=== PATIENT | female | born 1970 | race Caucasian/White ===

== ENCOUNTER 2021-06-19 16:00 | Emergency (ER) | payer OTHER ==
[~2021-06-19] VITALS: Ht 167.6 cm; Wt 76.4 kg
[2021-06-19 16:35] VITALS: BP 124/54
--- NOTE | 2021-06-19 18:03 | RAD ---
EXAM: AP, lateral and lumbosacral spot views of the lumbar spine DATE: 06/19/2021 5:38 PM INDICATION: Reason: RIGHT SIDED FLANK, LUMBAR BACK PAIN / Spl. Instructions: / History: COMPARISON: No Prior FINDINGS: Vertebral body heights are preserved. Disc heights are preserved. Mild facet degenerative changes of L3-4 and below. No spondylolisthesis. IMPRESSION: No acute fracture or subluxation. Electronically signed by: Zohaib Monique MD (06/19/2021 6:01 PM) RAHEEL
--- NOTE | 2021-06-19 18:25 | PHYS DOC ---
Past History Past Surgical History: Hysterectomy, Tonsillectomy Additional Past Surgical Histo: breast reduction, gastric sleeve, tubal ligation (WARREN GAUTHIER APRN) Alcohol Use: Rarely (WARREN GAUTHIER APRN) General Adult EDM: Chief Complaint: BACK PAIN OR INJURY HPI: HPI: Patient is a 50-year-old female who presents to the emergency department for right flank pain that started 1 week ago. Is worse with movement. She rates the pain 6 out of 10. No treatment prior to arrival. Patient was issued a primary care appointment on for this but could not wait. Patient de nies any fevers, nausea, vomiting, dysuria, hematuria, urinary frequency or urgency, injury or heavy lifting. (WARREN GAUTHIER APRN) Review of Systems: Review of Systems: 14 body systems of the review of systems have been reviewed. See HPI for pertinent positive and negative responses, otherwise all other systems are negative, nonpertinent or noncontributory (WARREN GAUTHIER APRN) Allergies: Allergies: Allergies Coded Allergies Type Severity Reaction Last Updated Verified Penicillins Allergy Unknown 06/19/21 Yes (WARREN GAUTHIER APRN) Physical Exam: PE: Constitutional: Well developed, well nourished, no acute distress, non-toxic appearance. [] HENT: Normocephalic, atraumatic Eyes: PERRLA, EOMI, conjunctiva normal, no discharge. [] Neck: Normal range of motion, no stridor Cardiovascular:Heart rate regular rhythm, no murmur [] Lungs & Thorax: Bilateral breath sounds clear to auscultation [] Abdomen: Bowel sounds normal, soft, no tenderness, no masses, no pulsatile masses. [] Skin: Warm, dry, no erythema, no rash. [] Back: No tenderness, right-sided CVA tenderness Extremities: No tenderness, no cyanosis, no clubbing, ROM intact, no edema. [] Neurologic: Alert and oriented X 3, normal motor function, normal sensory function, no focal deficits noted. [] Psychologic: Affect normal, judgement normal, mood normal. [] (WARREN GAUTHIER APRN) Current Patient Data: Labs: Laboratory Tests Test 06/19/21 16:42 Urine Collection Type Unknown Urine Color Yellow Urine Clarity Clear Urine pH 7.0 Urine Specific [place] 1.020 Urine Protein Neg Urine Glucose (UA) Neg mg/dL Urine Ketones (Stick) Neg mg/dL Urine Blood Neg Urine Nitrite Neg Urine Bilirubin Neg Urine Urobilinogen Dipstick 0.2 mg/dL Urine Leukocyte Esterase Neg Urine RBC 0 /HPF Urine WBC 0 /HPF Urine Squamous Epithelial Cells Few /LPF Urine Bacteria Few /HPF Vital Signs: Vital Signs Date Time Temp Pulse Resp B/P (MAP) Pulse Ox O2 Delivery O2 Flow Rate FiO2 06/19/21 16:35 97.8 70 18 124/54 (77) 100 Room Air (WARREN GAUTHIER APRN) EKG: EKG: [] (WARREN GAUTHIER APRN) Radiology/Procedures: Radiology/Procedures: []REASON: RIGHT SIDED FLANK, LUMBAR BACK PAIN PROCEDURE: LUMBAR SPINE 2-3V EXAM: AP, lateral and lumbosacral spot views of the lumbar spine DATE: 06/19/2021 5:38 PM INDICATION: Reason: RIGHT SIDED FLANK, LUMBAR BACK PAIN / Spl. Instructions: / History: COMPARISON: No Prior FINDINGS: Vertebral body heights are preserved. Disc heights are preserved. Mild facet degenerative changes of L3-4 and below. No spondylolisthesis. IMPRESSION: No acute fracture or subluxation. Electronically signed by: Zohaib Diehl MD (06/19/2021 6:01 PM) [facility] DICTATED AND SIGNED BY: ZOHAIB DIEHL MD DATE: 06/19/21 1800 CC: GUSTAVO KILGORE MD; WARREN GAUTHIER APRN; ERIC ANN ~MTH0 0 (WARREN GAUTHIER APRN) Heart Score: C/O Chest Pain: N/A Risk Factors: Risk Factors: DM, Current or recent (<one month) smoker, HTN, HLP, family history of CAD, obesity. Risk Scores: Score 0 - 3: 2.5% MACE over next 6 weeks - Discharge Home Score 4 - 6: 20.3% MACE over next 6 weeks - Admit for Clinical Observation Score 7 - 10: 72.7% MACE over next 6 weeks - Early Invasive Strategies (WARREN GAUTHIER APRN) Course & Med Decision Making: Course & Med Decision Making Pertinent Labs and Imaging studies reviewed. (See chart for details) Patient presents to the emergency department for right-sided flank pain that started 1 week ago. X-ray was performed that was negative for any acute findings. Urinalysis was performed that showed acute findings. Patient was offered treatment with muscle relaxer and Toradol shot in the ER but refused requesting flexeril tablet. Patient advised to take tylenol and muscle relaxers. Advised to follow-up with her primary care provider on her appointment on . I discussed with patient all findings and diagnostic testing as well as the need to follow-up with PCP for further evaluation and treatment or return to the ER if any new or worsening symptoms. Strict return precautions were also discussed at length. Patient voiced understanding and agreement with the plan. Patient is hemodynamically stable at the time of disposition. (WARREN GAUTHIER APRN) Dragon Disclaimer: Dragon Disclaimer: This electronic medical record was generated, in whole or in part, using a voice recognition dictation system. (WARREN GAUTHIER APRN) Attending Co-Sign The patient was seen and interviewed as well as examined at the bedside. The chart was reviewed. The case was discussed. Agree with the plan of care. (MARY LYMAN DO) Departure Departure: Impression: Primary Impression: Back pain Qualified Codes: M54.50 - Low back pain, unspecified Disposition: HOME / SELF CARE / HOMELESS Condition: GOOD Referrals: GUSTAVO KILGORE MD (PCP) Patient Instructions: Back Pain, Adult Additional Instructions: You were seen in the emergency department for right lower back pain. Your x-ray was negative for acute findings. Your urinalysis was negative for a urinary tract infection. You are to with anti-inflammatory and muscle relaxer in the ER. You can take tylenol at home for pain. You are being discharged home with a muscle relaxer. Please take this as directed. This medication may cause sedation so do not take any need to be alert, driving a vehicle or with alcohol. Follow-up with your primary care provider as previously scheduled on . Return to the emergency department if you develop worsening of your pain, inability to bear weight or ambulate, loss of bowel or bladder, numbness or tingling in your groin or down your legs. EMERGENCY DEPARTMENT GENERAL DISCHARGE INSTRUCTIONS Thank you for coming to [facility] (ED) today and trusting us with you care. We trust that you had a positivie experience in our Emergency Department. If you wish to speak to the department management, you may call the director at [phone]. YOUR FOLLOW UP INSTRUCTIONS ARE FOLLOWS: 1. Do you have a private Doctor? If you do not have a private doctor, please ask for a resource list of physicians or clinics that may be able to assist you with follow up care. 2. The Emergency Physician has interpreted your x-rays. The X-Ray specialist will also review them. If there is a change in the findings, you will be notified in 48 hours when at all possible. 3. A lab test or culture has been done, your results will be reviewed and you will be notified if you need a change in treatment. ADDITIONAL INSTRUCTIONS AND INFORMATION: 1. Your care today has been supervised by a physician who is specially trained in emergency care. Many problems require more than one evaluation for a complete diagnosis and treatment. We recommend that you schedule your follow up appointment as recommended to ensure complete treatment of you illness or injury. If you are unable to obtain follow up care and continue to have a problem, or if your condition worsens, we recommend that you return to the ED. 2. We are not able to safely determine your condition over the phone nor are we able to give sound medical advice over the phone. For these safety reasons, if you call for medical advice we will ask you to come to the ED for further evaluation. 3. If you have any questions regarding these discharge instructions please call the ED at [phone]. SAFETY INFORMATION: In the interest of safety, wellness, and injury prevention; we encourage you to wear your sealbelt, if you smoke; quite smoking, and we encourage family to use a protective helmet for bicycling and other sporting events that present an increased risk for head injury. IF YOUR SYMPTOMS WORSEN OR NEW SYMPTOMS DEVELOP, OR YOU HAVE CONCERNS ABOUT YOUR CONDITION; OR IF YOUR CONDITION WORSENS WHILE YOU ARE WAITING FOR YOUR FOLLOW UP APPO INTMENT; EITHER CONTACT YOUR PRIMARY CARE DOCTOR, THE PHYSICIAN WHOSE NAME AND NUMBER YOU WERE GIVEN, OR RETURN TO THE ED IMMEDIATELY. Scripts Cyclobenzaprine Hcl (CYCLOBENZAPRINE HCL) 5 Mg Tablet 1 TAB PO TID for back pain for 7 Days, #21 TAB 0 Refills Prov: WARREN GAUTHIER APRN 06/19/21 WARREN GAUTHIRE APRN Jun 19, 2021 18:25 MARY LYMAN DO Jun 19, 2021 19:43
[2021-06-19 18:45] LABS: BACTERIA,URINE FEW /HPF (0-FEW); BILIRUBIN,URINE NEG (NEG); CLARITY,URINE CLEAR; COLOR,URINE YELLOW; GLUCOSE,URINE NEG (NEG); NITRITE,URINE NEG (NEG); RBC,URINE 0 /HPF (0-2); SQUAMOUS EPITHELIAL CELL,UR FEW /LPF; UROBILINOGEN,URINE 0.2 mg/dL (0.2 mg/dL); WBC,URINE 0 /HPF (0-4)
[2021-06-19] MEDS ORDERED: CYCL5TAB PO ×2 (18:51→18:58)
[2021-06-19] MEDS ORDERED: KETOROLAC 60 MG/2 ML VIAL. IM ONE (19:00)
[2021-06-19] MEDS ORDERED: ORPHENADRINE CITRATE 60 MG/2 ML VIAL. IM ONE (19:00)
[2021-06-19] MEDS: CYCLOBENZAPRINE 10 MG TABLET. PO ONE (19:14)
== END 2021-06-19 19:16 | disposition home or self-care (01) ==
LOC: ER 16:00
DX: M54.50 Low back pain, unspecified (principal); Z90.710 Acquired absence of both cervix and uterus; Z98.51 Tubal ligation status; Z88.0 Allergy status to penicillin
CPT/HCPCS: 72100; 81001; 99284